=== PATIENT | female | born 1960 | race African-American/Black ===

== ENCOUNTER 2019-04-08 06:56 | Day surgery (SDC) | payer OTHER ==
--- NOTE | 2019-04-08 07:32 | Anesthesia Day of Surgery ---
Anesthesia Day of Surgery - Day of Surgery Patient Examined: Yes Patient H&P Reviewed: Yes Patient is NPO: Yes
--- NOTE | 2019-04-08 07:32 | Anesthesia Consultation ---
Anesthesia Consult and Med Hx Date of service: 04/08/19 - Airway Anesthetic Teeth Evaluation: Good ROM Head & Neck: Adequate Mental/Hyoid Distance: Adequate Mallampati Class: Class I Intubation Access Assessment: Good - Pre-Operative Health Status ASA Pre-Surgery Classification: ASA1 Proposed Anesthetic Plan: MAC
[2019-04-08] MEDS ORDERED: LIDOCAINE MPF (2%) 20 MG/1 ML VIAL 5 ML ONE (09:00)
[2019-04-08] MEDS ORDERED: SODIUM CHLORIDE 0.9% 1000 ML 1,000 ML IV SCH (09:00)
[2019-04-08] MEDS ORDERED: PROPOFOL 200 MG/20 ML VIAL IV ONE (09:24)
--- NOTE | 2019-04-08 10:03 | Operative Report ---
Operative Report Operative Report: DOS: 04/08/19 SURGEON: Tl Ayala MD COLONOSCOPY with snare polypectomy REPORT PREOPERATIVE AND POSTOPERATIVE DIAGNOSIS: screening colonoscopy DESCRIPTION OF PROCEDURE: The pediatric colonoscope was passed to the cecum as identified by the ileocecal valve and appendiceal orifice. Scope was carefully withdrawn. Retroflexion was performed in the rectum. At the end of procedure, the scope was cleaned using normal technique. Vital signs monitored continuously throughout. SEDATION: Provided by [facility]. Quality of the prep was good except for formed stool in the ascending colon and cecum COMPLICATIONS: None. ESTIMATED BLOOD LOSS: 20cc FINDINGS: * Solid stool in the cecum/ascending colon, limiting views * 1cm pedunculated polyp in the ascending colon removed by hot snare polypectomy. The post-polypectomy site started to bleed and did not stop even after multiple minutes, so 2 clips were placed and complete hemostasis was attained * 6mm sessile polyp in the sigmoid colon removed by cold snare polypectomy * Remainder of the exam was normal RECOMMENDATIONS: * Due to the combination of multiple polyps and the solid stool in the right colon interfering with views, repeat colonoscopy in 1 year CC note to referring physician Jeannette Pina NP
[2019-04-08 10:59] VITALS: BP 131/80
--- NOTE | 2019-04-08 11:03 | Post Anesthesia Evaluation ---
- Post Anesthesia Evaluation Patient Participated: Yes Airway Patent: Yes Stable Respiratory Function: Yes Nausea/Vomiting: No Temp > 96.8F: Yes Pain Manageable: Yes Adequeate Hydration: Yes Anesthesia Complications: No Block Receding Appropriately: Not Applicable Patient on Ventilator: No
== END 2019-04-08 10:55 | disposition home or self-care (01) ==
LOC: GIO 06:56
PROVIDERS: ATTEND Student in an Organized Health Care Education/Training Program
DX: Z12.11 Encounter for screening for malignant neoplasm of colon (principal); D12.2 Benign neoplasm of ascending colon; D12.5 Benign neoplasm of sigmoid colon
CPT/HCPCS: 45385; 88305; J2704; J7030